=== PATIENT | female | born 1950 | race Caucasian/White ===

== ENCOUNTER 2021-12-27 00:22 | Day surgery (SDC) | payer MEDICARE, SELFPAY ==
[2021-10-04 11:01] VITALS: BMI 22.2
--- NOTE | 2021-10-16 14:27 | WPDGICN ---
Assessment and Plan Assessment and plan (1) Blood in stool: Code(s): K92.1 - Melena Status: Acute Assessment and Plan: Colonoscopy with possible biopsy or polypectomy or cautery or injection of substances. GI Consult Note Consult date/time: 10/16/21 14:27 HPI: Esther England is a 71 year old female was referred for investigation of rectal bleeding. Review of Systems Review of Systems: All systems reviewed & are unremarkable except as noted in HPI and below PMFSH Family History Family History Grandparent Hypertension Diabetes mellitus Family history of congenital heart disease Sibling Hypertension Family history of kidney disease Diabetes mellitus Family history of congenital heart disease Social History Social History Smoking status: Never smoker Alcohol intake: never Living arrangements: with family Spiritual care concerns: No Meds Home Medications and Allergies Home Medications Medication Instructions Recorded Confirmed Type abatacept [Orencia] 50 mg SUBCUT MONTHLY 10/04/21 10/04/21 History alendronate 70 mg PO WEEKLY 10/04/21 10/04/21 History aspirin 81 mg PO DAILY 10/04/21 10/04/21 History atorvastatin 20 mg PO DAILY 10/04/21 10/04/21 History calcium citrate [Citracal] 400 mg PO DAILY 10/04/21 10/04/21 History carvedilol 25 mg PO BID 10/04/21 10/04/21 History cyanocobalamin (vitamin B-12) 1,000 mcg PO DAILY 10/04/21 10/04/21 History dapagliflozin [Farxiga] 10 mg PO DAILY 10/04/21 10/04/21 History duloxetine 90 mg PO DAILY 10/04/21 10/04/21 History ezetimibe 10 mg PO DAILY 10/04/21 10/04/21 History folic acid 1 mg PO BID 10/04/21 10/04/21 History losartan 100 mg PO DAILY 10/04/21 10/04/21 History melatonin 10 mg PO HS PRN 10/04/21 10/04/21 History methotrexate sodium 15 mg PO WEEKLY 10/04/21 10/04/21 History multivit with min-folic acid 1 tablet PO DAILY 10/04/21 10/04/21 History [Adult One Daily Multivitamin] multivitamin with minerals 1 tablet PO DAILY 10/04/21 10/04/21 History [Hair,Skin and Nails] omeprazole 40 mg PO DAILY 10/04/21 10/04/21 History rivaroxaban [Xarelto] 2.5 mg PO BID 10/04/21 10/04/21 History sodium hyaluronate [Hyaluronic 20 mg PO DAILY 10/04/21 10/04/21 History Acid (sodium)] sumatriptan succinate 50 mg PO DAILY PRN 10/04/21 10/04/21 History tramadol 50 mg PO QID PRN 10/04/21 10/04/21 History qhmmibi-eklf-jgigo-oreg-capryl 1 cap PO DAILY 10/04/21 10/04/21 History vitamins A,C,A-nxfv-fkczdm 1 cap PO DAILY 10/04/21 10/04/21 History [PreserVision AREDS] Allergies Allergy/AdvReac Type Severity Reaction Status Date / Time codeine Allergy Unknown Other Verified 10/04/21 10:51 cortisone Allergy Unknown Other Verified 10/04/21 10:51 diphenhydramine Allergy Unknown Other Verified 10/04/21 10:51 iodine Allergy Unknown Other Verified 10/04/21 10:51 Contrast Media Allergy Intermediate ITCHING Uncoded 03/11/19 12:13 Exam Resp: Auscultation: clear to auscultation bilaterally Cardio: Rate: regular rate Rhythm: regular rhythm GI: GI Palp: Yes Soft to palpation and No Tenderness to palpation present (GI) AMG Consult Billing Observation Consult [id number] New Pt Lvl 2 Strfd
[2021-12-23 13:03] VITALS: BMI 22.2
--- NOTE | 2021-12-27 11:42 | PM.HPGS ---
History of Present Illness History of Present Illness Consent: Risks, benefits, and alternatives have been discussed and questions answered. Patient agrees to proceed with procedure. Chief complaint: Rectal Bleeding Narrative: Esther England is a 71 year old female Referred for colonoscopy due to rectal bleeding. Two months ago she had a week of having had abdominal cramping, diarrhea, and a large amount of blood in her stools. More recently she sees blood intermittently and it is usually bright red. For while she was seeing very dark blood and even having some black stools. She is no longer having abdominal pain Review of Systems Review of Systems: All systems reviewed & are unremarkable except as noted in HPI and below PMFSH Family History Family History Grandparent Hypertension Diabetes mellitus Family history of congenital heart disease Sibling Hypertension Family history of kidney disease Diabetes mellitus Family history of congenital heart disease Social History Social History Smoking status: Never smoker Alcohol intake: never Living arrangements: with family Spiritual care concerns: No Meds Home Medications and Allergies Home Medications Medication Instructions Recorded Confirmed Type abatacept [Orencia] 50 mg SUBCUT MONTHLY 10/04/21 12/23/21 History alendronate 70 mg PO WEEKLY 10/04/21 12/23/21 History aspirin 81 mg PO DAILY 10/04/21 12/23/21 History atorvastatin 20 mg PO DAILY 10/04/21 12/23/21 History calcium citrate [Citracal] 400 mg PO DAILY 10/04/21 12/23/21 History carvedilol 25 mg PO BID 10/04/21 12/23/21 History cyanocobalamin (vitamin B-12) 1,000 mcg PO DAILY 10/04/21 12/23/21 History dapagliflozin [Farxiga] 10 mg PO DAILY 10/04/21 12/23/21 History duloxetine 120 mg PO DAILY 10/04/21 12/23/21 History ezetimibe 10 mg PO DAILY 10/04/21 12/23/21 History folic acid 1 mg PO BID 10/04/21 12/23/21 History losartan 100 mg PO DAILY 10/04/21 12/23/21 History melatonin 10 mg PO HS PRN 10/04/21 12/23/21 History methotrexate sodium 15 mg PO WEEKLY 10/04/21 12/23/21 History multivit with min-folic acid 1 tablet PO DAILY 10/04/21 12/23/21 History [Adult One Daily Multivitamin] multivitamin with minerals 1 tablet PO DAILY 10/04/21 12/23/21 History [Hair,Skin and Nails] omeprazole 40 mg PO DAILY 10/04/21 12/23/21 History rivaroxaban [Xarelto] 2.5 mg PO BID 10/04/21 12/23/21 History sodium hyaluronate [Hyaluronic 20 mg PO DAILY 10/04/21 12/23/21 History Acid (sodium)] sumatriptan succinate 50 mg PO DAILY PRN 10/04/21 12/23/21 History tramadol 50 mg PO QID PRN 10/04/21 12/23/21 History ybtkwct-axwl-etbif-oreg-capryl 1 cap PO DAILY 10/04/21 12/23/21 History vitamins A,C,B-cyhj-sxzhuq 1 cap PO DAILY 10/04/21 12/23/21 History [PreserVision AREDS] furosemide 40 mg PO DAILY 12/23/21 12/23/21 History Allergies Allergy/AdvReac Type Severity Reaction Status Date / Time codeine Allergy Unknown Other Verified 12/27/21 11:56 cortisone Allergy Unknown Other Verified 12/27/21 11:56 diphenhydramine Allergy Unknown Other Verified 12/27/21 11:56 iodine Allergy Unknown Other Verified 12/27/21 11:56 Contrast Media Allergy Intermediate ITCHING Uncoded 12/27/21 11:56 Exam Resp: Auscultation: clear to auscultation bilaterally Cardio: Rate: regular rate Rhythm: regular rhythm GI: GI Palp: Yes Soft to palpation and No Tenderness to palpation present (GI) Assessment and Plan Assessment and plan (1) Blood in stool: Code(s): K92.1 - Melena Status: Acute Assessment and Plan: Colonoscopy with possible biopsy or polypectomy or cautery or injection of substances.
[2021-12-27 11:58] VITALS: BP 115/94; PULSE 77; RESP 20; TEMP 36.3; O2SAT 98; BMI 22.4
--- NOTE | 2021-12-27 12:18 | WPDANESEPPF ---
Anes - Initial Pre Proc Eval Procedure: Operation Date: 12/27/21 13:00 Proposed Procedures p Colonoscopy - Fabiano Sánchez MD Date/Time: 12/27/21 12:18 Surgeon: Fabiano Sánchez MD Pre Op Diagnosis: Rectal Bleeding Patient Data Age: 71 Gender: F Height: 1.5 m Weight: 50.4 kg Last Vital Signs Temp 36.3 C L 12/27/21 11:58 Pulse 77 12/27/21 11:58 Resp 20 12/27/21 11:58 BP 115/94 H 12/27/21 11:58 Pulse Ox 77 L 12/27/21 11:58 Allergies Allergy/AdvReac Type Severity Reaction Status Date / Time codeine Allergy Unknown Other Verified 12/27/21 11:56 cortisone Allergy Unknown Other Verified 12/27/21 11:56 diphenhydramine Allergy Unknown Other Verified 12/27/21 11:56 iodine Allergy Unknown Other Verified 12/27/21 11:56 Contrast Media Allergy Intermediate ITCHING Uncoded 12/27/21 11:56 Home Medications Medication Instructions Recorded Confirmed Type abatacept [Orencia] 50 mg SUBCUT MONTHLY 10/04/21 12/23/21 History alendronate 70 mg PO WEEKLY 10/04/21 12/23/21 History aspirin 81 mg PO DAILY 10/04/21 12/23/21 History atorvastatin 20 mg PO DAILY 10/04/21 12/23/21 History calcium citrate [Citracal] 400 mg PO DAILY 10/04/21 12/23/21 History carvedilol 25 mg PO BID 10/04/21 12/23/21 History cyanocobalamin (vitamin B-12) 1,000 mcg PO DAILY 10/04/21 12/23/21 History dapagliflozin [Farxiga] 10 mg PO DAILY 10/04/21 12/23/21 History duloxetine 120 mg PO DAILY 10/04/21 12/23/21 History ezetimibe 10 mg PO DAILY 10/04/21 12/23/21 History folic acid 1 mg PO BID 10/04/21 12/23/21 History losartan 100 mg PO DAILY 10/04/21 12/23/21 History melatonin 10 mg PO HS PRN 10/04/21 12/23/21 History methotrexate sodium 15 mg PO WEEKLY 10/04/21 12/23/21 History multivit with min-folic acid 1 tablet PO DAILY 10/04/21 12/23/21 History [Adult One Daily Multivitamin] multivitamin with minerals 1 tablet PO DAILY 10/04/21 12/23/21 History [Hair,Skin and Nails] omeprazole 40 mg PO DAILY 10/04/21 12/23/21 History rivaroxaban [Xarelto] 2.5 mg PO BID 10/04/21 12/23/21 History sodium hyaluronate [Hyaluronic 20 mg PO DAILY 10/04/21 12/23/21 History Acid (sodium)] sumatriptan succinate 50 mg PO DAILY PRN 10/04/21 12/23/21 History tramadol 50 mg PO QID PRN 10/04/21 12/23/21 History oixlwue-juxu-rqqjl-oreg-capryl 1 cap PO DAILY 10/04/21 12/23/21 History vitamins A,C,S-cciw-aczqeh 1 cap PO DAILY 10/04/21 12/23/21 History [PreserVision AREDS] furosemide 40 mg PO DAILY 12/23/21 12/23/21 History Patient hx anesthesia problems: none Family hx anesthesia problems: none Results Review: All pre-operative results and documents have been reviewed as part of the pre-operative evaluation. [facility] Past Medical History Medical History (Updated 12/27/21 @ 12:22 by Dalton Morgan MD) Anemia CAD (coronary artery disease) CHF (congestive heart failure) HTN (hypertension) Rheumatoid arthritis Family History Family History Grandparent Hypertension Diabetes mellitus Family history of congenital heart disease Sibling Hypertension Family history of kidney disease Diabetes mellitus Family history of congenital heart disease Social History Social History Smoking status: Never smoker Alcohol intake: never Living arrangements: with family Spiritual care concerns: No Anes - Eval Final PreProcedure Day of Procedure 12/27/21 12:18 Patient weight: normal Heart: regular rate and rhythm Lungs: clear to auscultation Airway: Mallampati scale class II Neurological: alert and oriented Last oral intake: >/= 8 hours ASA classification: III Emergent: no Anesthetic plan: proceed Anesthesia type and monitoring: general GIVS Results Review: All pre-operative results and documents have been reviewed as part of the pre-operative evaluation. Informed Consent: The patient's anesthetic plan and its attendant risks and benefi
[2021-12-27] MEDS: LACTATED RINGERS 1,000 ML 150 ML IV CONT (12:19)
[2021-12-27 12:40] VITALS: BP 117/67; PULSE 76; RESP 13; O2SAT 98
[2021-12-27 12:50] VITALS: BP 121/67; PULSE 75; RESP 14; O2SAT 100
[2021-12-27 13:00] VITALS: BP 157/82; PULSE 71; RESP 15; O2SAT 99
== END 2021-12-27 13:14 | disposition home or self-care (01) ==
PROVIDERS: PCP Internal Medicine; Visit Provider Internal Medicine Gastroenterology
PROC: 0DJD8ZZ Inspection of Lower Intestinal Tract, Via Natural or Artificial Opening Endoscopic (ICD-10-PCS; CPT 45378; principal; 2021-12-27 13:00)
DX: K92.1 Melena (principal); K64.8 Other hemorrhoids; K57.30 Diverticulosis of large intestine without perforation or abscess without bleeding; Z79.01 Long term (current) use of anticoagulants; Z79.82 Long term (current) use of aspirin; D64.9 Anemia, unspecified; I50.9 Heart failure, unspecified; I25.10 Atherosclerotic heart disease of native coronary artery without angina pectoris; M06.9 Rheumatoid arthritis, unspecified; R19.7 Diarrhea, unspecified; R10.9 Unspecified abdominal pain
CPT/HCPCS: 45378; J2704; J7120

== ENCOUNTER 2022-05-06 13:14 | Outpatient (CLI) | payer MEDICARE, SELFPAY ==
--- NOTE | ~2022-05-06 | US_ITS ---
EXAMINATION: US carotid duplex BI DATE: 05/06/2022 15:15 INDICATION: Vertigo TECHNIQUE: Grayscale, color Doppler, and pulsed Doppler images of the cervical carotid arteries were obtained. The degree of vessel stenosis is placed in one of the following categories: normal, <50%, 5 0-69%, >=70% but less than near-occlusion, near-occlusion, or total occlusion. Note that percent sten osis relative to normal distal artery lumen diameter is indirectly measured from velocity measurement s as described by Moises, et al. Radiology 2003; 229:340-346. COMPARISON: None. FINDINGS: RIGHT: The right common carotid artery (CCA) peak systolic velocity (PSV) is 118 cm/s. The right internal ca rotid artery (ICA) PSV is 91 cm/s. The right ICA end-diastolic velocity (EDV) is 29 cm/s. The right I CA/CCA PSV ratio is 1.1. Grayscale and color Doppler images yield an estimate of <50% diameter reduct ion from plaque in the ICA. The external carotid artery (ECA) PSV is 89 cm/s. There is antegrade flow in the right vertebral artery. LEFT: The left CCA PSV is 120 cm/s. The left ICA PSV is 71 cm/s. The left ICA EDV is 25 cm/s. The left ICA/ CCA PSV ratio is 1.0. Grayscale and color Doppler images yield an estimate of <50% diameter reduction from plaque in the ICA. The ECA PSV is 89 cm/s. There is antegrade flow in the left vertebral artery . IMPRESSION: 1. <50% stenosis in the right internal carotid artery. 2. <50% stenosis in the left internal carotid artery. Reviewed, dictated and finalized at location A.
--- NOTE | ~2022-05-06 | MR_ITS ---
EXAMINATION: MR cervical spine wo con DATE: 05/06/2022 14:00 INDICATION: Neck pain. TECHNIQUE: Magnetic resonance imaging (MRI) of the cervical spine was performed without intravenous c ontrast. Sequences included sagittal T2-weighted FSE, sagittal T2-weighted FS FSE, sagittal T1-weight ed FSE, axial MERGE, and axial T2-weighted FSE. COMPARISON: None FINDINGS: There is 8 degrees levocurvature of cervicothoracic spine. There is 2 mm anterolisthesis of C7 on T1. There is severe osteoarthritis of anterior atlantoaxial joint with peridens pseudopannus. There is moderately decreased disc height at C4-C5 and severely decreased disc height at C6-C7 with e ndplate remodeling. There is healed interbody fusion at C5-C6. The spinal cord signal intensity is no rmal. The following disc levels are specifically discussed: C2-C3: The disc does not extend beyond the endplate margin. There is no uncovertebral joint osteoarth ritis. There is moderate right and severe left facet joint osteoarthritis. There is mild left neural foraminal stenosis. There is no central canal stenosis. C3-C4: The disc does not extend beyond the endplate margin. There is mild bilateral uncovertebral nadja nt osteoarthritis. There is severe right and moderate left facet joint osteoarthritis. There is mild right neural foraminal stenosis. There is no central canal stenosis. C4-C5: The disc is bulging. There is severe bilateral uncovertebral joint osteoarthritis. There is se ever right and moderate left facet joint osteoarthritis. There is moderate bilateral neural foraminal stenosis. There is mild central canal stenosis. C5-C6: There is mild bilateral uncovertebral joint hypertrophy. There is ankylosis of the facet joint s with mild hypertrophy. There is mild bilateral neural foraminal stenosis. There is no central canal stenosis. C6-C7: The disc is bulging. There is severe bilateral uncovertebral joint osteoarthritis. There is se ever bilateral facet joint osteoarthritis. There is moderate right and mild left neural foraminal niki nosis. There is mild central canal stenosis. C7-T1: The disc does not extend beyond the endplate margin. There is no uncovertebral joint osteoarth ritis. There is severe bilateral facet joint osteoarthritis. There is mild bilateral neural foraminal stenosis. There is no central canal stenosis. IMPRESSION: 1. Severe cervical spondylosis. 2. Anterior fusion at C5-C6. Reviewed, dictated and finalized at location A.
== END 2022-05-06 13:15 | disposition home or self-care (01) ==
PROVIDERS: PCP Internal Medicine; Visit Provider Internal Medicine
DX: M47.813 Spondylosis without myelopathy or radiculopathy, cervicothoracic region (principal); I65.23 Occlusion and stenosis of bilateral carotid arteries; M48.03 Spinal stenosis, cervicothoracic region; R09.89 Other specified symptoms and signs involving the circulatory and respiratory systems; Z98.1 Arthrodesis status
CPT/HCPCS: 72141; 93880

== ENCOUNTER 2023-09-02 15:20 | Emergency (ER) | payer MEDICARE, SELFPAY ==
[2023-09-02] VITALS (8 sets, daily range): BP systolic 127–144; BP diastolic 69–78; PULSE 71–85; RESP 12–20; TEMP 36.3; O2SAT 98–100
--- NOTE | ~2023-09-02 | XR_ITS ---
EXAMINATION: [id number] DATE: 09/02/2023 16:46 INDICATION: Chest injury. TECHNIQUE: Frontal and lateral views of the chest and 2 views of the right ribs and 2 views of the le ft ribs on a total of 7 radiographs were obtained. COMPARISON: None. FINDINGS: CHEST TWO VIEWS: There is no pneumonia, pleural effusion, or pneumothorax. The heart size is normal. There is a total right shoulder arthroplasty. BILATERAL RIBS: There is no rib fracture. IMPRESSION: 1. No rib fracture. Reviewed, dictated and finalized at location E. SETTER IMPRESSION: 1. No rib fracture.
--- NOTE | ~2023-09-02 | CT_ITS ---
EXAMINATION: CT brain wo con DATE: 09/02/2023 16:36 INDICATION: Syncope. TECHNIQUE: Computed tomography (CT) of the head was performed without intravenous contrast. The mA wa s adjusted according to patient size. Iterative reconstruction technique was employed. The dose-lengt h product was 681.00 mGy-cm. COMPARISON: None FINDINGS: There are scattered areas of low attenuation in the cerebral white matter, which is within normal limits for the patient's age. There is no intracranial hemorrhage, acute infarction, or abnorm al intracranial mass lesion. The ventricles are normal in size. There are likely changes of ocular le ns replacement surgeries. There is mild mucosal thickening in the paranasal sinuses. The mastoid air cells are normal. IMPRESSION: 1. Normal aging brain. Reviewed, dictated and finalized at location E. H PRESS OPERATOR IMPRESSION: 1. Normal aging brain.
--- NOTE | ~2023-09-02 | CT_ITS ---
EXAMINATION: CT cervical spine wo con DATE: 09/02/2023 16:37 INDICATION: Head injury. TECHNIQUE: Computed tomography (CT) of the cervical spine was performed without intravenous contrast. Automated exposure control and iterative reconstruction technique were employed. The dose-length pro duct was 202.03 mGy-cm. COMPARISON: None FINDINGS: There is 4 degrees levocurvature of cervical spine. There is 2 mm anterolisthesis of C3 on C4, C4 on C5, and C7 on T1. There is interbody fusion at C5-C6. There is moderately decreased disc he ight at C4-5, severely decreased disc height at C6-C7, and mildly decreased disc height at C7-T1. The re is peridens inflammatory pseudopannus with mild central canal stenosis. The following disc levels are specifically discussed: C2-C3: There is mild bilateral uncovertebral joint osteoarthritis. There is moderate right and severe left facet joint osteoarthritis. There is mild left neural foraminal stenosis. There is no central c anal stenosis. C3-C4: There is mild bilateral uncovertebral joint osteoarthritis. There is severe right and moderate left facet joint osteoarthritis. There is mild right neural foraminal stenosis. There is no central canal stenosis. C4-C5: There is severe bilateral uncovertebral joint osteoarthritis. There is severe bilateral facet joint osteoarthritis. There is moderate bilateral neural foraminal stenosis. There is mild central ca nal stenosis. C5-C6: There is mild bilateral uncovertebral joint hypertrophy. There is ankylosis of the facet joint s with mild hypertrophy. There is mild bilateral neural foraminal stenosis. There is no central canal stenosis. C6-C7: There is severe bilateral uncovertebral joint osteoarthritis. There is severe right and modera te left facet joint osteoarthritis. There is mild bilateral neural foraminal stenosis. There is mild central canal stenosis. C7-T1: There is no uncovertebral joint osteoarthritis. There is severe bilateral facet joint osteoart hritis. There is mild bilateral neural foraminal stenosis. There is no central canal stenosis. IMPRESSION: 1. No fracture. 2. Severe cervical spondylosis. Reviewed, dictated and finalized at location E. ING ENGINEER
--- NOTE | 2023-09-02 15:23 | ECG_ITS ---
Measurements Intervals Mora Rate: 67 P: 52 NJ: 149 QRS: 17 QRSD: 86 T: 54 QT: 420 QTc: 445 Interpretive Statements SINUS RHYTHM BASELINE ARTIFACT- I, II, III, AVR, AVL, AVF, V1-V6 NORMAL ECG NO PREVIOUS ECG AVAILABLE FOR COMPARISON Electronically Signed On 09-02-2023 15:36:12 BROADCAST JOURNALIST by Yoseph Lance D.O.
[2023-09-02 15:50] LABS: Basophils Percent Auto 0.2 % (0.2-1.2); Eosinophils Absolute Auto 0.2 K/mm3 (0-0.3); Eosinophils Percent Auto 1.6 % (0-4.4); Hematocrit 43.7 % (37.0-47.0); Hemoglobin 13.7 g/dL (12.0-15.0); Immature Granulocyte Absolute 0.09 K/mm3 (0.00-0.031); Immature Granulocyte Percent A 0.9 % (0-0.5); Lymphocytes Absolute Auto 1.69 K/mm3 (0.9-3.2); Lymphocytes Percent Auto 17.1 % (18.3-44.2); Mean Corpuscular HGB Conc 31.4 g/dl (32-36); Mean Corpuscular Hemoglobin 29.6 pg (26-34); Mean Corpuscular Volume 94.4 fl (80-100); Mean Platelet Volume 9.3 fl (7.4-10.4); Neutrophils Absolute Auto 6.9 K/mm3 (1.3-6.7); Neutrophils Percent Auto 70.2 % (45.5-73.1); Platelet Count Result 261 k/mm3 (150-375); Red Blood Count 4.63 M/mm3 (4.2-5.4); Red Cell Distribution Width 11.9 % (11.5-14.5); White Blood Count 9.9 K/mm3 (4.5-10.0)
[2023-09-02 16:00] LABS: Alanine Aminotransferase 61 U/L (6-35); Albumin Level 4.3 g/dL (3.5-5.1); Alkaline Phosphatase 64 U/L (38-126); Anion Gap 12 mmol/L (8-16); Aspartate Amino Transferase 51 U/L (14-36); Bilirubin,Total 0.8 mg/dL (0.2-1.3); Blood Urea Nitrogen 29 mg/dL (7-17); Calcium 8.9 mg/dL (8.4-10.2); Carbon Dioxide 24 mmol/L (22-30); Chloride 96 mmol/L (98-107); Estimated Glomerular Filt Rate 34; Glucose 95 mg/dL (65-110); Potassium 3.6 mmol/L (3.4-5.0); Sodium 132 mmol/L (137-145)
--- NOTE | 2023-09-02 16:13 | ED.DIZZY ---
HPI - Dizziness General Chief Complaint: Syncope <Jasper Caputo PA-C - Last Filed: 09/02/23 20:12> Stated Complaint: dizzy, falls <Jasper Caputo PA-C - Last Filed: 09/02/23 20:12> Time Seen by Provider: 09/02/23 15:49 <Jasper Caputo PA-C - Last Filed: 09/02/23 20:12> Source: patient <CROW Shultz Last Filed: 09/02/23 20:12> Mode of arrival: ambulatory <CROW Shultz Last Filed: 09/02/23 20:12> Limitations: no limitations <CROW Shultz Last Filed: 09/02/23 20:12> History of Present Illness HPI Narrative: This is a 73-year-old female With PMH of CAD, CHF, HTN, RA who presents to the ED with chief complaint of Frequent falls over the past several days. Reports that she has had 4 falls in 5 days. Reports she will stand up And started walking to go to another room when she had the episodes happen. She is status there is a little bit of prodrome with seeing flashing lights. Denies any chest pain or shortness of breath associated with the episodes. States she has intermittent shortness of breath with asthma. States she had a little bit of upper abdominal pain yesterday. Denies fevers, chills, cough, leg swelling, palpitations. <CROW Shultz Last Filed: 09/02/23 20:12> Related Data Home Medications: Home Medications Medication Instructions Recorded Confirmed abatacept 50 mg/0.4 mL 50 mg subcut MONTHLY 10/04/21 12/23/21 subcutaneous syringe (Orencia) alendronate 70 mg tablet 70 mg PO WEEKLY 10/04/21 12/23/21 aspirin 81 mg tablet,delayed 81 mg PO DAILY 10/04/21 12/23/21 release atorvastatin 20 mg tablet 20 mg PO DAILY 10/04/21 12/23/21 calcium citrate 200 mg (950 mg) 400 mg PO DAILY 10/04/21 12/23/21 tablet carvedilol 25 mg tablet 25 mg PO BID 10/04/21 12/23/21 cyanocobalamin (vitamin B-12) 1,000 mcg PO DAILY 10/04/21 12/23/21 1,000 mcg tablet dapagliflozin propanediol 10 mg 10 mg PO DAILY 10/04/21 12/23/21 tablet (Farxiga) duloxetine 60 mg capsule,delayed 120 mg PO DAILY 10/04/21 12/23/21 release ezetimibe 10 mg tablet 10 mg PO DAILY 10/04/21 12/23/21 folic acid 1 mg tablet 1 mg PO BID 10/04/21 12/23/21 losartan 100 mg tablet 100 mg PO DAILY 10/04/21 12/23/21 melatonin 10 mg tablet 10 mg PO HS PRN Sleep 10/04/21 12/23/21 methotrexate sodium 2.5 mg tablet 15 mg PO WEEKLY 10/04/21 12/23/21 multivitamin with minerals 1 tablet PO DAILY 10/04/21 12/23/21 (Hair,Skin and Nails tablet) multivitamin with minerals-folic 1 tablet PO DAILY 10/04/21 12/23/21 acid 0.4 mg tablet omeprazole 40 mg capsule,delayed 40 mg PO DAILY 10/04/21 12/23/21 release rivaroxaban 2.5 mg tablet (Xarelto) 2.5 mg PO BID 10/04/21 12/23/21 sodium hyaluronate 20 mg capsule 20 mg PO DAILY 10/04/21 12/23/21 sumatriptan succinate 50 mg tablet 50 mg PO DAILY PRN Headache 10/04/21 12/23/21 tramadol 50 mg tablet 50 mg PO QID PRN Pain 10/04/21 12/23/21 turmeric 100 mg-dian 150 1 cap PO DAILY 10/04/21 12/23/21 mg-olive 50 mg-oreg 150 mg-capryl capsule vitamins A,C,Z-fnbj-vzqefn 4,296 1 cap PO DAILY 10/04/21 12/23/21 mcg-226 mg-90 mg capsule (PreserVision AREDS) furosemide 40 mg tablet 40 mg PO DAILY 12/23/21 12/23/21 <Jasper Caputo PA-C - Last Filed: 09/02/23 20:12> Allergies/Adverse Reactions: Allergies Allergy/AdvReac Type Severity Reaction Status Date / Time codeine Allergy Unknown Other Verified 10/14/22 14:45 cortisone Allergy Unknown Other Verified 10/14/22 14:45 diphenhydramine Allergy Unknown Other Verified 10/14/22 14:45 iodine Allergy Unknown Other Verified 10/14/22 14:45 Contrast Media Allergy Intermediate ITCHING Uncoded 10/14/22 14:45 <Jasper Caputo PA-C - Last Filed: 09/02/23 20:12> Review of Systems Review of Systems: All systems as dictated in HPI <Jasper Caputo PA-C - Last Filed: 09/02/23 20:12> PMFSH Past Medical History Medical History: Medical History (Updated 09/02/23 @ 19:37 by Jasper Griffith
--- NOTE | 2023-09-02 16:29 | PC.NURSE ---
Pt to CT scan via stretcher at this time.
[2023-09-02 17:04] LABS: Troponin I < 0.012 ng/mL (0.000-0.034)
[2023-09-02 17:26] LABS: D Dimer 0.32 ug/mL (<0.48)
[2023-09-02 18:40] LABS: Appearance Urine Clear (Clear); Bacteria Urine None Seen /hpf; Bilirubin Urine Negative (Negative); Blood Urine Negative (Negative); Color Urine Yellow (Yellow); Glucose Urine UA 2+ mg/dL (Negative); Ketones Urine Negative (Negative); Leukocyte Esterase Ur 1+ LEU/UL (Negative); Need Manual Microscopic Reviewed; Nitrate Urine Negative (Negative); Protein Urine Trace mg/dL (Negative); RBC Urine 0-2 /hpf (0-2); Specific Grav Ur 1.017 (1.001-1.035); Squamous Epithelial Cell Urine Occasional /hpf (Few); Urobilinogen Urine 0.2 mg/dL (<2.0); pH Urine 5.5 (5.0-9.0)
[2023-09-02 18:43] LABS: Add Urine Microscopic? YES
== END 2023-09-02 20:43 | disposition left against medical advice (07) ==
PROVIDERS: Emergency Medicine; Emergency Provider Physician Assistant; PCP Internal Medicine
DX: R55 Syncope and collapse (principal); N39.0 Urinary tract infection, site not specified; I25.10 Atherosclerotic heart disease of native coronary artery without angina pectoris; I50.9 Heart failure, unspecified; I11.0 Hypertensive heart disease with heart failure; J45.909 Unspecified asthma, uncomplicated; M06.9 Rheumatoid arthritis, unspecified; Z79.82 Long term (current) use of aspirin; Z79.01 Long term (current) use of anticoagulants; Z86.2 Personal history of diseases of the blood and blood-forming organs and certain disorders involving the immune mechanism; M47.812 Spondylosis without myelopathy or radiculopathy, cervical region
CPT/HCPCS: 36415; 70450; 71111; 72125; 80053; 81001; 84484; 85025; 85380; 87086; 87088; 93005; 99284